=== PATIENT | female | born 2000 | race Caucasian/White ===

== ENCOUNTER → 2023-01-28 14:48 | Outpatient (BNVA) | payer BC, SELFPAY | PROVIDERS: PCP Nurse Practitioner; Referring Provider Nurse Practitioner; Visit Provider Nurse Practitioner | DX: F41.9 Anxiety disorder, unspecified (principal) | CPT/HCPCS: 80053; 84443 ==

== ENCOUNTER → 2023-03-08 17:47 | Outpatient (BNVA) | payer BC, SELFPAY | PROVIDERS: PCP Nurse Practitioner; Visit Provider Emergency Medicine | DX: N94.9 Unspecified condition associated with female genital organs and menstrual cycle (principal); N39.0 Urinary tract infection, site not specified | CPT/HCPCS: 81000; 87086; 87491; 87591 ==